=== PATIENT | male | born 1985 | race Caucasian/White ===

== ENCOUNTER 2019-02-15 21:08 | Emergency (ER) | payer BC ==
[2019-02-15] MEDS ORDERED: Ketorolac 60 MG/2 ML SDV IM ONE (21:21)
--- NOTE | 2019-02-15 21:24 | EDM.PDOC ---
ED HPI GENERAL MEDICAL PROBLEM - General Chief Complaint: Back Pain or Injury Stated Complaint: PT FELL AND HURT BACK Time Seen by Provider: 02/15/19 21:23 Source of Information: Reports: Patient History Limitations: Reports: No Limitations - History of Present Illness INITIAL COMMENTS - FREE TEXT/NARRATIVE: HISTORY AND PHYSICAL: History of present illness: Patient is a 33-year-old male presents to the ED with back pain. He states he was walking down some stairs when he missed a step and his feet flew out in front of him and he land on his low back/upper buttocks. He states he got up right away and drove himself to the ED. He is complaining of pain to the lower back and right buttock with numbness and tingling down the posterior right leg. He denies saddle anesthesia, bowel or bladder incontinence or lower extremity weakness. He denies significant past medical history. Review of systems: As per history of present illness and below otherwise all systems reviewed and negative. Past medical history: As per history of present illness and as reviewed below otherwise noncontributory. Surgical history: As per history of present illness and as reviewed below otherwise noncontributory. Social history: No reported history of drug or alcohol abuse. Family history: As per history of present illness and as reviewed below otherwise noncontributory. Physical exam: General: Patient sitting comfortably in no acute distress and nontoxic appearing HEENT: Atraumatic, normocephalic, pupils reactive, negative for conjunctival pallor or scleral icterus, mucous membranes moist, throat clear, neck supple, nontender, trachea midline. No meningeal signs. Lungs: Clear to auscultation, breath sounds equal bilaterally, chest nontender. Heart: S1S2, regular, negative for clicks, rubs, or overt murmur. Abdomen: Soft, nondistended, nontender. Negative for masses or hepatosplenomegaly. Negative for costovertebral tenderness. No rigidity, rebound , guarding. Pelvis: Stable nontender. Genitourinary: Deferred. Rectal: Deferred. Spine: no cervical, thoracic, or lumbar spinal tenderness to palpation. Pain to palpation of the sacrum and right illiac crest and buttock. Extremities: Atraumatic, negative for cords or calf pain. Neurovascular unremarkable. Neuro: Awake, alert, oriented. Cranial nerves II through XII unremarkable. Cerebellum unremarkable. Motor and sensory unremarkable throughout. Exam nonfocal. Notes: Diagnostics: x-ray sacrum and coccyx Therapeutics: Toradol 60mg IM Prescriptions: Impression: Sacral pain Plan: Tylenol and ibuprofen as needed Follow up with primary care provider Return to ED as needed as discussed Definitive disposition and diagnosis as appropriate pending reevaluation and review of above. low back Pain Score (Numeric/FACES): 10 - Related Data Allergies Allergy/AdvReac Type Severity Reaction Status Date / Time No Known Allergies Allergy Verified 02/15/19 21:21 Home Meds: Home Meds . [No Known Home Meds] 02/15/19 [History] Social & Family History - Tobacco Use Smoking Status *Q: Never Smoker - Recreational Drug Use Recreational Drug Use: No ED ROS GENERAL - Review of Systems Review Of Systems: ROS reveals no pertinent complaints other than HPI. ED EXAM,LOWER BACK PAIN/INJURY - Physical Exam Exam: See Below (see dictation) Course - Vital Signs Last Recorded V/S: Last Vital Signs Temp 97 F 02/15/19 21:10 Pulse 80 02/15/19 21:10 Resp 18 02/15/19 21:10 BP 121/60 02/15/19 21:10 Pulse Ox 95 02/15/19 21:10 - Orders/Labs/Meds Meds: Medications Discontinued Medications Generic Name Dose Route Start Last Admin Trade Name Harris PRN Reason Stop Dose Admin Ketorolac Tromethamine 60 mg 02/15/19 21:21 02/15/19 21:31 Toradol IM 02/15/19 21:22 60 mg ONETIME ONE Administration Departure - Departure Time of Disposition: 22:13 Disposition: Home, Self-Care 01 Condition: Good Clinical Impression: Sacral pain - Discharge Information Referrals: PCP,None [Primary Care Provider] - Forms: ED Department Discharge Additional Instructions: The following information is given to patients seen in the emergency department who are being discharged to home. This information is to outline your options for follow-up care. We provide all patients seen in our emergency department with a follow-up referral. The need for follow-up, as well as the timing and circumstances, are variable depending upon the specifics of your emergency department visit. If you don't have a primary care physician on staff, we will provide you with a referral. We always advise you to contact your personal physician following an emergency department visit to inform them of the circumstance of the visit and for follow-up with them and/or the need for any referrals to a consulting specialist. The emergency department will also refer you to a specialist when appropriate. This referral assures that you have the opportunity for follow-up care with a specialist. All of these measure are taken in an effort to provide you with optimal care, which includes your follow-up. Under all circumstances we always encourage you to contact your private physician who remains a resource for coordinating your care. When calling for follow-up care, please make the office aware that this follow-up is from your recent emergency room visit. If for any reason you are refused follow-up, please contact the [facility] at and asked to speak to the emergency department charge nurse. [facility] [address] [place], [place] [id number] [place] [address] Tylenol and ibuprofen as needed Follow up with primary care provider Return to ED as needed as discussed
--- NOTE | 2019-02-15 22:05 | CR ---
Indication: Fall. Technique: Three views of the sacrum and coccyx were obtained. Comparison: None Findings: The alignment of the sacrum and coccyx is within normal limits. No fracture or subluxation is identified. Impression: No acute fracture. Dictated by Anaeblle Solis MD @ Feb 15 2019 10:04PM Signed by Dr. Anabelle Solis @ Feb 15 2019 10:04PM
== END 2019-02-15 22:25 | disposition home or self-care (01) ==
LOC: MW.ED 21:08
DX: M53.3 Sacrococcygeal disorders, not elsewhere classified (principal); W10.9XXA Fall (on) (from) unspecified stairs and steps, initial encounter; Y93.01 Activity, walking, marching and hiking
CPT/HCPCS: 72220; 96372; 99283; J1885

== ENCOUNTER 2022-10-19 14:48 | Emergency (ER) | payer BC ==
[2022-10-19] MEDS ORDERED: Diphtheria,Pertussis(Acell),Tetanus Vaccine 0.5 ML Syringe IM ONE (15:06)
== END 2022-10-19 15:30 | disposition home or self-care (01) ==
LOC: MW.ED 14:48
DX: S91.332A Puncture wound without foreign body, left foot, initial encounter (principal); Z23 Encounter for immunization; Z88.0 Allergy status to penicillin; W45.0XXA Nail entering through skin, initial encounter
CPT/HCPCS: 90471; 90715; 99282-25; 99283